=== PATIENT | male | born 1970 | race Caucasian/White ===

== ENCOUNTER → 2020-03-15 14:32 | Outpatient (CLI) | payer BC, SELFPAY ==
--- NOTE | 2020-03-15 14:39 | US_ITS ---
PROCEDURE: US KIDNEY CLINICAL INDICATION: LT GROIN PAIN COMPARISON: No exams were available for comparison FINDINGS: The right kidney is [id number]. No hydronephrosis, cortical thinning, or renal mass or perinephric fluid collection is evident. The left kidney is [id number]. No hydronephrosis, cortical thinning, or renal mass or perinephric fluid collection is evident. IMPRESSION: Unremarkable bilateral renal ultrasound Dictated by: sIael Hector MD 03/15/2020 18:00 Electronically signed by Isael Hector MD in [place] 03/15/2020 18:00
--- NOTE | 2020-03-15 14:39 | US_ITS ---
PROCEDURE: US URINARY BLADDER CLINICAL INDICATION: LT GROIN PAIN COMPARISON: No exams were available for comparison FINDINGS: Urinary bladder has an unremarkable appearance. Full bladder volume is estimated be 4 1 mL. No obvious mass evident. Bilateral ureteral jets noted. Postvoid urine is 80 mL. IMPRESSION: Mild amount of postvoid residual urine otherwise negative urinary bladder ultrasound Dictated by: Isael Hector MD 03/15/2020 18:00 Electronically signed by Isael Hector MD in [place] 03/15/2020 18:00
--- NOTE | 2020-03-15 14:39 | US_ITS ---
PROCEDURE: US TESTICULAR CLINICAL INDICATION: LT GROIN PAIN COMPARISON: No exams were available for comparison FINDINGS: The right testicle is 4 x 2 x 2.6 cm. Left testicle is 4 x 2 x 2.6 cm. There is homogeneous echogenicity of testicles. No mass is evident. Bilateral blood flow is noted. No hydrocele, spermatocele, or varicocele noted. IMPRESSION: Unremarkable testicular ultrasound Dictated by: Isael Hector MD 03/15/2020 17:58 Electronically signed by Isael Hector MD in [place] 03/15/2020 17:58
== END ==
PROVIDERS: Visit Provider Internal Medicine
DX: R10.32 Left lower quadrant pain (principal)
CPT/HCPCS: 76770; 76857; 76870

== ENCOUNTER → 2021-05-22 17:07 | Outpatient (CLI) | payer BC, SELFPAY ==
[2021-05-22 17:44] LABS: Basophils % 0.5 % (0.1-2.0); Eosinophils # 0.2 K/mm3 (0.0-0.4); Eosinophils % 3.2 % (0.1-12.0); Hematocrit 46.6 % (42.0-52.0); Hemoglobin 15.7 g/dL (14.1-18.0); Lymphocytes % 34.2 % (10-50); Mean Corpuscular HGB Conc 33.6 g/dL (31.8-35.4); Mean Corpuscular Hemoglobin 30.6 pg (27.0-31.2); Mean Platelet Volume 8.3 fl (7.4-10.4); Monocytes # 0.4 K/mm3 (0.1-1.0); Monocytes % 6.4 % (1.7-9.3); Neutrophils # 3.3 K/mm3 (1.8-7.8); Neutrophils % 55.7 % (37.0-80.0); Platelet Count 238 K/mm3 (142-424); Red Blood Count 5.12 M/mm3 (4.60-6.20); Red Cell Distribution Width 12.9 % (11.5-17.5); White Blood Count 5.9 K/mm3 (4.8-10.8)
[2021-05-22 18:08] LABS: Hemoglobin A1C 8.4 % (4.0-6.0)
[2021-05-22 18:16] LABS: Chloride 104 mmol/L (98-107); Potassium 4.1 mmoL/L (3.5-5.1); Sodium 140 mmol/L (136-145)
[2021-05-22 18:18] LABS: Alanine Aminotransferase 39 U/L (12-78); Albumin Level 4.6 g/dl (3.5-5.0); Albumin/Globulin Ratio 1.5 (1.1-1.8); Alkaline Phosphatase 115 U/L (38-126); Anion Gap 13.1 mEq/L (5-15); Aspartate Amino Transferase 31 U/L (17-59); Bilirubin,Total 0.5 mg/dl (0.2-1.3); Blood Urea Nitrogen 19 mg/dl (9-20); Carbon Dioxide 27 mmol/L (22.0-30.0); Estimated Glomerular Filt Rate 102 ml/min (>60); GFR (African American) 123 ML/MIN (>60); Total Protein,Serum 7.6 g/dl (6.3-8.2)
[2021-05-22 18:19] LABS: Calcium 9.9 mg/dl (8.4-10.2); Chol/HDL Ratio 3.3 (1-3.5); Cholesterol 240 mg/dl (140-200); Glucose 207 mg/dl (74-100); HDL Cholesterol 73 mg/dl (40-60); Triglycerides 156 mg/dl (30-150); VLDL Cholesterol 31 mg/dL (0-40)
[2021-05-22 18:30] LABS: Direct LDL Cholesterol 140.87 mg/dL (100-129)
[2021-05-22 19:14] LABS: Prostate Specific Ag Screen 0.8 ng/ml (0.0-4.0)
== END ==
PROVIDERS: Visit Provider Internal Medicine
DX: I10 Essential (primary) hypertension (principal); E78.5 Hyperlipidemia, unspecified; E11.9 Type 2 diabetes mellitus without complications; N52.9 Male erectile dysfunction, unspecified; N40.1 Benign prostatic hyperplasia with lower urinary tract symptoms; Z12.5 Encounter for screening for malignant neoplasm of prostate
CPT/HCPCS: 80053; 80061; 83036; 85025; G0103

== ENCOUNTER → 2021-11-22 12:44 | Outpatient (CLI) | payer BC, SELFPAY | PROVIDERS: PCP Internal Medicine; Visit Provider Nurse Practitioner Family | DX: U07.1 COVID-19 (principal) | CPT/HCPCS: C9803; U0003; U0005 ==

== ENCOUNTER 2021-11-25 10:13 | Outpatient (CLI) | payer BC, SELFPAY ==
[2021-11-25] VITALS (8 sets, daily range): BP systolic 144–165; BP diastolic 102–107; PULSE 77–83; RESP 16–18; TEMP 36.4–36.6; O2SAT 94–97
== END 2021-11-25 13:01 | disposition home or self-care (01) ==
LOC: COVID.OUT 10:13
PROVIDERS: Visit Provider Nurse Practitioner Family
DX: U07.1 COVID-19 (principal); Z23 Encounter for immunization
CPT/HCPCS: 96365

== ENCOUNTER → 2022-09-30 17:00 | Outpatient (CLI) | payer BC, SELFPAY ==
[2022-09-30 18:17] LABS: Basophils # 0.1 K/mm3 (0-0.2); Basophils % 1.4 % (0.1-2.0); Eosinophils # 0.1 K/mm3 (0.0-0.4); Eosinophils % 1.6 % (0.1-12.0); Hematocrit 47.3 % (42.0-52.0); Hemoglobin 15.4 g/dL (14.1-18.0); Lymphocytes # 2.3 K/mm3 (0.7-4.5); Lymphocytes % 39.7 % (10-50); Mean Corpuscular HGB Conc 32.5 g/dL (31.8-35.4); Mean Corpuscular Hemoglobin 30.4 pg (27.0-31.2); Mean Corpuscular Volume 93.5 fl (80-94); Mean Platelet Volume 9.4 fl (7.4-10.4); Monocytes # 0.4 K/mm3 (0.1-1.0); Monocytes % 6.5 % (1.7-9.3); Neutrophils % 50.8 % (37.0-80.0); Platelet Count 304 K/mm3 (142-424); Red Blood Count 5.06 M/mm3 (4.60-6.20); Red Cell Distribution Width 13.1 % (11.5-17.5); White Blood Count 5.8 K/mm3 (4.8-10.8)
[2022-09-30 20:11] LABS: Alanine Aminotransferase 47 U/L (12-78); Albumin Level 4.5 g/dl (3.5-5.0); Albumin/Globulin Ratio 1.7 (1.1-1.8); Alkaline Phosphatase 212 U/L (38-126); Anion Gap 16.8 mEq/L (5-15); Aspartate Amino Transferase 32 U/L (17-59); Bilirubin,Total 0.4 mg/dl (0.2-1.3); Blood Urea Nitrogen 18 mg/dl (9-20); Calcium 10.3 mg/dl (8.4-10.2); Carbon Dioxide 29 mmol/L (22.0-30.0); Chloride 95 mmol/L (98-107); Cholesterol 232 mg/dl (140-200); Estimated Glomerular Filt Rate 118 ml/min (>60); GFR (African American) 143 ML/MIN (>60); Globulin 2.6 g/dL (1.3-3.2); Glucose 313 mg/dl (74-100); HDL Cholesterol 58 mg/dl (40-60); Potassium 3.8 mmoL/L (3.5-5.1); Sodium 137 mmol/L (136-145); Total Protein,Serum 7.1 g/dl (6.3-8.2); Triglycerides 157 mg/dl (30-150); VLDL Cholesterol 31 mg/dL (0-40)
[2022-09-30 20:31] LABS: Direct LDL Cholesterol 136.77 mg/dL (100-129)
[2022-09-30 20:43] LABS: Prostate Specific Ag Screen 0.9 ng/ml (0.0-4.0)
[2022-09-30 21:19] LABS: Creatinine,Urine Random 62 mg/dL (Not Estab.)
== END ==
PROVIDERS: PCP Internal Medicine; Visit Provider Internal Medicine
DX: E11.9 Type 2 diabetes mellitus without complications (principal); I10 Essential (primary) hypertension; E78.5 Hyperlipidemia, unspecified; Z12.5 Encounter for screening for malignant neoplasm of prostate
CPT/HCPCS: 80053; 80061; 82043; 82570; 83036; 85025; G0103

== ENCOUNTER → 2023-09-07 16:10 | Outpatient (CLI) | payer BC, SELFPAY ==
--- NOTE | 2023-09-07 16:18 | XR_ITS ---
FINAL REPORT CLINICAL HISTORY: INJURY to right 4th digit x 3 weeks ago. COMPARISON: None FINDINGS: RIGHT HAND: 3 views of the right hand were obtained. There is no acute fracture or dislocation. Visualized joint spaces are normally aligned. Soft tissues are unremarkable. IMPRESSION: No acute bony abnormality. Reviewed, Interpreted and Dictated by Wei Webb III, MD Transcribed by Solange Sanford Authenticated and [facility]
== END ==
LOC: RAD 16:12
PROVIDERS: PCP Internal Medicine; Visit Provider Internal Medicine
DX: M79.641 Pain in right hand (principal); M79.89 Other specified soft tissue disorders
CPT/HCPCS: 73130

== ENCOUNTER 2025-04-20 09:27 | Outpatient (CLI) | payer BC, SELFPAY ==
[2025-04-20 19:18] LABS: Basophils % 0.8 % (0.1-2.0); Eosinophils # 0.2 Kmm3 (0.0-0.4); Eosinophils % 3.3 % (0.1-12.0); Hematocrit 46.6 % (42.0-52.0); Hemoglobin 15.2 g/dL (14.1-18.0); Immature Granulocytes # 0.02 10^3uL; Immature Granulocytes % 0.4 %; Lymphocytes # 2.2 K/mm3 (0.7-4.5); Lymphocytes % 42.3 % (10-50); Mean Corpuscular HGB Conc 32.6 g/dL (31.8-35.4); Mean Corpuscular Hemoglobin 29.4 pg (27.0-31.2); Mean Corpuscular Volume 90.1 fl (80-94); Mean Platelet Volume 11.2 fl (7.4-10.4); Monocytes # 0.5 K/mm3 (0.1-1.0); Monocytes % 9.8 % (1.7-9.3); Neutrophils # 2.2 K/mm3 (1.8-7.8); Neutrophils % 43.4 % (37.0-80.0); Nucleated Red Blood Cells # 0 10^3/uL; Nucleated Red Blood Cells % 0 %; Platelet Count 220 K/mm3 (142-424); Red Blood Count 5.17 M/mm3 (4.60-6.20); Red Cell Distribution Width 12.1 % (11.5-17.5); Red Cell Distribution Width-SD 39.8 fL; White Blood Count 5.1 K/mm3 (4.8-10.8)
[2025-04-20 19:33] LABS: Chloride 103 mmol/L (98-107); Sodium 140 mmol/L (136-145)
[2025-04-20 19:35] LABS: Alanine Aminotransferase 54 U/L (12-78); Aspartate Amino Transferase 42 U/L (17-59); Blood Urea Nitrogen 25 mg/dl (9-20); Estimated Glomerular Filt Rate 100 ml/min (>60); GFR (African American) 121 ML/MIN (>60)
[2025-04-20 19:36] LABS: Alkaline Phosphatase 111 U/L (38-126); Bilirubin,Total 0.6 mg/dl (0.2-1.3); Calcium 9.8 mg/dl (8.4-10.2); Carbon Dioxide 26 mmol/L (22.0-30.0); Chol/HDL Ratio 2.8 (1-3.5); Cholesterol 189 mg/dl (140-200); Glucose 167 mg/dl (74-100); HDL Cholesterol 67 mg/dl (40-60); Total Protein,Serum 7.6 g/dl (6.3-8.2); Triglycerides 123 mg/dl (30-150); VLDL Cholesterol 25 mg/dL (0-40)
[2025-04-20 19:47] LABS: Direct LDL Cholesterol 89.57 mg/dL (100-129)
[2025-04-20 20:20] LABS: Microalbumin/Creatinine Ratio 31.6
[2025-04-20 20:29] LABS: Creatinine,Urine Random 66 mg/dL (Not Estab.)
[2025-04-20 20:48] LABS: Hemoglobin A1C 11.8 % (4.0-6.0)
[2025-04-20 22:47] LABS: Prostate Specific Ag Screen 0.9 ng/ml (0.0-4.0)
[2025-04-20 22:51] LABS: Albumin Level 4.8 g/dl (3.5-5.0); Albumin/Globulin Ratio 1.7 (1.1-1.8); Globulin 2.8 g/dL (1.3-3.2)
--- OUTSIDE RECORDS SUMMARY | 2025-04-21 13:28 | XMS_ITS | Data Portability ---
Author Organization ALFREDO JOSE DAVID Alvarez [facility] CLOSED Address [address] [facility] [address] [place] [address] Care Team Providers Care Outside Laborer Name Role Phone KENIA MENDEZ Primary Care Provider KENIA TILLMAN Staff Training And Development Manager SIMON KING Instructional Systems Design Consultant [phone] Assessment Encounter Date Assessment Date Assessment LastModified by Organization Details LastModified Time 04/19/2019 04/19/2019 Discussed with patient that he does not have findings suggestive of a tennis elbow at this time, but instead more consistent with radial tunnel syndrome. Recommended referral to hand therapy as well as a diagnostic/therap eutic corticosteroid injection, which was divided in the office today. I instructed patient to monitor for difficulty with thumb extension, which will help confirm that the injection was placed in the radial tunnel. He'll continue modified work duty. Follow-up in 5 weeks for repeat assessment. bdevers Not available 04/19/2019 14:36:28 05/24/2019 05/24/2019 Discussed with patient that his history and exam remains most consistent with radial tunnel syndrome. Recommended continued therapy at this time. His injection at last clinic visit did resort in some improvement, but not a temporary PIN palsy. Thus, it is possible that the injection was not placed around the nerve. Thus recommended repeat injection in the office today.. I instructed patient to monitor for difficulty with thumb extension, which will help confirm that the injection was placed in the radial tunnel. He'll continue modified work duty. Follow-up in 5 weeks for repeat assessment. bdevers Not available 05/24/2019 16:50:49 06/28/2019 06/28/2019 Patient is doing well at this time with significant improvement in symptoms. Okay to return to work without restrictions at this time to start the work reentry process. Follow-up in 5 weeks for repeat assessment to ensure no setbacks upon return to work. If continuing to do well at that time I plan to declare him MMI. bdevers Not available 06/28/2019 16:06:41 08/02/2019 08/02/2019 Patient is doing well at this time with resolution of symptoms. Okay to continue working without restrictions at this time. He has now reached MMI. Patient will follow up in clinic on an as-needed basis should additional questions or concerns arise. bdevers Not available 08/02/2019 14:02:10 Plan of Treatment Reminders Order Date Submit Date Provider Last Modified By Organization Details Last Modified Time Details Appointments None recorded. Lab glycohemog lobin, total, blood 2017 018 [facility], [address] [place] [address], [id number], 8 19:28:06 Referral None recorded. Procedures None recorded. Surgeries None recorded. Imaging None recorded. Medication Orders amlodipine 2.5 mg tablet 2017 018 [facility], [address], [place], [address], 9 14:09:11 lisinopril 20 mg-hydroch lorothiazi de 12.5 mg tablet 2017 018 INTERFACE [facility], [address], [place], [address], 8 15:43:12 pravastati n 10 mg tablet 2017 018 [facility] - [facility], [address], [place], [address], 9 14:08:55 Patient TargetsNo targets recorded. Patient Instructions Encounter Date Encounter Id Patient Instructions Last Modified By Organization Details Last Modified Time 12/21/2017 [id number] type 2 diabetes: care instructions Not available 12/21/2017 15:43:03 high cholesterol : care instructions Not available 12/21/2017 15:43:03 learning about healthy weight Not available 12/21/2017 15:43:03 Body Mass Index: Care Instructions-LC Not available 12/21/2017 15:43:03 04/19/2019 [id number] eating healthy foods: care instructions [email or web address] [id number] Not available 05/29/2022 03:37:07 type 2 diabetes: care instructions [email or web address] [id number] Not available 05/29/2022 03:36:43 Reason for Referral None Reported. Results Created Date Observation Date Name Description Value Unit Range Abnormal Flag Note LastModifiedBy Organization Detail LastModifiedTime 12/21/19 18 12/21/2017 glyco hemog lobin , total , blood glyco HGB A1C 7.3 % 0.0-5. 6 high Not Available [facility] [address] [place], [address], 12/21/2017 19:28:06 12/21/19 18 12/21/2017 glyco hemog lobin , total , blood estimated avg. glucose 163 mg/dL _(laura c) normal New guide lines by the Ameri can Diabe yeni Assoc iatio n state that a hemog lobin A1c level of 5.7-6 .4% indic ates an incre ased risk of diabe yeni. A resul t of 6.5% or highe r is diagn ostic of diabe yeni. Not Available [facility] [address] [place], [address], 12/21/2017 19:28:06 Result Notes None recorded. Problems Name Problem SNOMED Code Status Onset Date Resolution Date Notes Provider Name and Address Organization Details Recorded Time Hypertens kee disorder 76084354 Active 2015 From Automated Load;Provi federico: Samantha Mendez atus: Active Not Available [facility] 6 09:22:27 Hyperlipi demia 95861997 Active 2015 From Automated Load;Provi federico: Kenia Mendez;St atus: Active Not Available [facility] 6 09:22:27 Type 2 diabetes mellitus 97972237 Active 2015 From Automated Load;Provi federico: Kenia Mendez;St atus: Active Not Available [facility] 6 09:22:27 Dizziness and giddiness 184369614 Active 2015 From Automated Load;Provi federico: Karina Bhandari;Stat us: Active Not Available [facility] 7 06:34:19 Type 2 diabetes mellitus without complicat ion 331302473 Active 2015 From Automated Load;Provi federico: Kenia Tillman;St atus: Active Not Available [facility] 7 06:34:19 Problem Notes Documentation Provider Name and Address Organization Details Recorded Time Orthopedic Consult Note : [facility] [address] [facility] [address]GEMR, LUIS E (id #[id number], : 1970) [facility] [address] [place] [address] Encounter Summary - Progress Note Date Printed: 04/19/2019 Documents sent via fax will include the followingmessage: This fax may contain sensitive and confidential personal health information that is being sent for the sole use of the intended recipient. Unintended recipients are directed to securely destroy any materials received. You are hereby notified that the unauthorized disclosure or other unlawful use of this fax or any personal health information is prohibited. To the extent patient information contained in this fax is subject to 42 CFR Part 2, this regulation prohibits unauthorized disclosure of these records. If you received this fax in error, please visit [email or web address] to notify the sender and confirm that the information will be destroyed. If you do not have internet access, please call to notify the sender and confirm that the information will be destroyed. Thank you for your attention and cooperation. [ID:[id number]] Patient Alex Sutton (48yo, M) #[id number] 1970 Patient Demographics: Address [address] [place] [address] [place] [address] Encounter Notes: Encounter Reason/Date NEW: right forearm w/comp 04/19/2019 - 02:30PM - [facility] History of Present IllnessHand SurgeryReported bypatient.Hand Dominance:right Location:right Severity:pain level 7/10 Duration:date of injury: ; 12 weeks Previous Surgery:none Work Related:yes Working:modified duty; [employer] 2Notes:NEW: right forearm pain w/comp, has been doing therapy on site for the past month has seen some relief. Con Req BY: Dr. 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 He presents as a compensation consultation today for evaluation of a 4 month history of right dorsal proximal forearm pain. Denies any preceding injury, that relates it to his work-related activity. He has been working with therapy at work for the past month and has been on restrictions for over a month as well. He has been using Biofreeze intermittently. He tries to avoid anti-inflammatory medication and has not tried any splinting. Overall symptoms remain unchanged at this time. Symptoms are worse with the elbow extended and with strenuous activity. Denies any numbness or tingling in the hand. Review of Systems Patient reportsGERDbut reports no abdominal pain, no vomiting, normal appetite, no diarrhea, not vomiting blood, and no dyspepsia. He reports no fever and no night sweats. He reports no chest pain, no palpitations, and no known heart murmur. He reports no excessive bleeding. He reports no runny nose, no sinus pressure, no itching, no hives, and no frequent sneezing. He reports no history of Accutane (isotretinoin) use in the last 6 months. He reports not currently smoking. Maprwf1204/19/2019 02:07 pm Ht: 5 ft 4 in Wt: 186 lbs BMI: 31.9 Pain Scale: 7 Results/InterpretationsNone recorded Physical ExamPatient is a 48-year-old male. General: No acute distress Mental Status: Appropriate HEENT: NCAT Pulmonary: Chest excursion symmetric with unlabored breathing Cardiovascular: Palpable radial pulse GI: No asymmetric abdominal distension Skin: No visible lesions or rashes upon examined upper extremity(s) except as noted in musculoskeletal exam Lymphatic: No lymphadenopathy within examined upper extremity(s) Musculoskeletal: Focused examination of right upper extremity reveals no swelling in the arm. No tenderness over the lateral epicondyle or common extensor tendon. No pain with resisted wrist extension or resisted finger extension. He does have tenderness over the dorsal central proximal forearm in the area of the radial tunnel and reports mild pain with resisted supination. Sensation grossly intact to light touch throughout the hand. Hand and digits well-perfused. Procedure DocumentationInjection Tendon Sheath/Ligament:Injection(s), Tendon Sheath or Ligament: Right radial tunnel After discussion of the risks and benefits, the patient elected a corticosteroid injection in the involved tendon sheath. The skin was sterilized with alcohol. Topical anesthesia was achieved with ethyl chloride. The involved tendon sheath was injected with 1 cc of Betamethasone [facility] 1828-6472-10, 6 mg/ml, and Marcaine. The injection was completed without complication and a bandage was applied. The patient tolerated the procedure well and was instructed to avoid strenuous activity for the next 24-48 hours. The patient will call immediately with any signs of infection or allergic reaction. Assessment and PlanDiscussed with patient that he does not have findings suggestive of a tennis elbow at this time, but instead more consistent with radial tunnel syndrome. Recommended referral to hand therapy as well as a diagnostic/therapeutic corticosteroid injection, which was divided in the office today. I instructed patient to monitor for difficulty with thumb extension, which will help confirm that the injection was placed in the radial tunnel. He'll continue modified work duty. Follow-up in 5 weeks for repeat assessment. 1. Radial tunnel syndrome- Right radial tunnel syndrome (CSI: 04/19/19) G56.31: Lesion of radial nerve, right upper limb 2. Type 2 diabetes mellitus without complication- Instructed patient to monitor his blood glucose levels for the next 3-5 days as these will be temporarily elevated following injection in the office today. E11.9: Type 2 diabetes mellitus without complications EATING HEALTHY FOODS: CARE INSTRUCTIONS TYPE 2 DIABETES: CARE INSTRUCTIONS Return to Office KRISTEN STANFORD MD for RECHECK at [facility] on 05/24/2019 at 02:30 PM Patient Medical History: Allergies List Reviewed Allergies NKDA Medications Reviewed Medications NameDate Source Accu-Chetania Guide stripscheck blood sugar at and Dx: E11.91 prescribed KARINA BHANDARI PA-C Amaryl 4 mg tabletTake 1 tablet(s) every day by oral route.12/21/17 prescribed KARINA BHANDARI PA-C glimepiride 2 mg tabletTake 1 tablet(s) every day by oral route.04/19/19 entered Mariola Carver Glucophage 1,000 mg tabletone po bid with meals Internal Note:Duration: 30 days;Frequency: bid;Medication Description: metformin; Dosage:1; Route:oral; refills:6; Quantity:60 /24/17 prescribed KENIA MENDEZ MD lisinopril 20 mg-hydrochlorothiazide 12.5 mg tabletTAKE ONE TABLET BY MOUTH ONCE DAILY12/21/17 prescribed KARINA BHANDARI PA-C Family HistoryReviewed Family History Father - Hypertensive disorder - Diabetes mellitus Past Medical HistoryReviewed Past Medical History Diabetes:Y High Cholesterol:Y Hypertension:Y Vaccine HistoryReviewed Vaccines no vaccines listed in IC Electronically Signed by: KRISTEN STANFORD MD KENIA MENDEZ MD [address] [place] [address] [place], [address], [facility] 04/19/2019 14:48:21 Procedures Surgical History Date Name Laterality Status Provider Name and Address Organization Details Recorded Time 9 Injection Tendon Sheath/Ligamen t completed [facility] [place], [address], [facility] 05/24/2019 16:51:10 9 Injection Tendon Sheath/Ligamen t completed KRISTEN STANFORD [facility] [place], [address], [facility] 04/19/2019 14:34:25 Knee Surgery completed Jessica Waller [facility] 11/10/2016 14:46:16 Imaging Results None recorded. Procedure Notes None recorded. Medical Equipment None Reported. Allergies No known drug allergies Medications Name Sig Start Date Stop Date Status Note LastModified by Organization Details LastModified Time lisinopril 20 mg-hydrochl orothiazide 12.5 mg tablet TAKE ONE TABLET BY MOUTH ONCE DAILY 2017 active Not Available Not Available Not Avai lable amlodipine 2.5 mg tablet TAKE ONE TABLET BY MOUTH ONCE DAILY 04/19 completed Not Available Not Available Not Available Glucophage 1,000 mg tablet one po bid with meals 2016 active Duratio n: 30 days;Fr equency : bid;Med ication Descrip tion: metform in; Dosage: 1; Route:o ral; refills :6; Quantit y:60 tablet Not Available Not Available Not Available glimepiride 2 mg tablet Take 1 tablet every day by oral route. active Not Available Not Available No t Available Amaryl 4 mg tablet Take 1 tablet every day by oral route. 2017 active Not Available Not Available Not Avai lable pravastatin 10 mg tablet TAKE ONE TABLET BY MOUTH ONCE DAILY 04/19 completed Not Available Not Available Not Available Accu-Chek Guide test strips check blood sugar at ac and hs Dx: E11.9 2016 active Not Available Not Available Not Avai lable Vitals Date Recorded Body height Body mass index (BMI) Body weight Heart rate Systolic blood pressure Diastolic blood pressure Provider Name and Address Organization Details Last Updated DateTime 8 160.02 cm 32.9 kg/m2 75051.1 8 g 76 /min 130 mm[Hg] 80 mm[Hg] America Hagen [facility] 8 15:31:32 Date Recorded Body height Body mass index (BMI) Body weight Provider Name and Address Organization Details Last Updated DateTime 04/19/2019 162.56 cm 31.9 kg/m2 10768.18 g Mariola Wen [facility] 04/19/2019 14:07:43 Date Recorded Body height Body mass index (BMI) Body weight Provider Name and Address Organization Details Last Updated DateTime 05/24/2019 162.56 cm 31.9 kg/m2 20412.18 g Jessica Joe [facility] 05/24/2019 14:35:59 Date Recorded Body height Body mass index (BMI) Body weight Provider Name and Address Organization Details Last Updated DateTime 06/28/2019 162.56 cm 31.9 kg/m2 43740.18 g Magali Cheema [facility] 06/28/2019 14:38:21 Date Recorded Body height Body mass index (BMI) Body weight Provider Name and Address Organization Details Last Updated DateTime 08/02/2019 162.56 cm 31.9 kg/m2 99154.18 g Mariola Carver [facility] 08/02/2019 13:39:44 Social History Question Answer Notes LastModified by Organizat ion Details LastModified Time Tobacco Smoking Status Former Smoker Jessica Waller [facility] 11/10/2016 14:45:46 What Is Your Level Of Caffeine Consumption? Moderate Information not available 11/10/2016 Which Of Your Hands Is Dominant? Right Information not available 04/19/2019 What Was The Date Of Your Most Recent Tobacco Screening? 05/24/2019 [id number] Information not available 01/10/2020 Sex: Unknown Functional Status Question Answer Note LastModified by Organizat ion Details LastModified Time Do you use any illicit or recreational drugs? No Information not available 04/19/2019 What is your level of alcohol consumption? Occasional Information not available 11/10/2016 What is your occupation? [employer] Information not available 04/19/2019 Mental Status None recorded. Family History Relationship Description Onset Age of this Age Resolved Age Notes LastModified by Organization Details LastModified Time Father Hypertensive disorder [email or web address] Not available 2015 14:44:10 Father Diabetes mellitus [email or web address] Not available 2015 14:45:09 Medical History Condition Response Diabetes Y High Cholesterol Y Hypertension Y Past Encounters Encounter ID Performer Location Encounter Start Date Encounter Closed Date Diagnosis/Indication Diagnosis SNOMED-CT Code Diagnosis ICD10 Code Diagnosis Note [id number] LOYDA MURDOCK PA-C [facility] [address] [place] [address] 11/13/2016 08:24:33 11/13/2016 15:08:47 Hypertensive disorder 20951592 I10 in good control Essential hypertension 87403732 I10 Diabetes mellitus 890319 09 E11.9 elevated A1C at last visit and pt is NOT taking his Metformin ecept weekends. He does not check his BG at home. 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 got two of three planned injections . bleeding still apparent. rec reeval with [facility] for further evaluation .It looks much better than initally described by Dr. Colindres' note. [id number] ALLYN MCKAYC [address] [place] [address] 09/07/2017 14:02:12 09/07/2017 14:51:38 Type 2 diabetes mellitus without complication 744946226 E11.9 glucose 275 after lunch one day last week. apparently pt had prednisone x 2 days prior to having the blood draw per his dray driver for plantar fasciitis but has since stopped this. I suspect this is what elevated his sugar. He would like a glucose meter to check his blood sugar at home. glucose meter was provided to the patient, and strips and lancets were ordered. Hypertensive disorder 38 461712 I10 stable on meds. didn't get labs done in march. Hyperlipidemia 35574637 E78.5 on pravastati n. didn't get lipid panel done in march. Screening for malignant neoplasm of prostate 507218030 Z12.5 Numbness of toe 01549885 8 R20.0 this is mild and intermitte nt. May be from diabetes, b12 deficiency , or a peripheral nerve issue. check labs. exam normal today. [id number] KARINA BHANDARI PA-C [address] [place] [address] 10/16/2017 10:17:37 10/16/2017 11:26:51 Hypertensive disorder 71908548 I10 stable. labs done in august. does not yet need refills. Type 2 ruth betes mellitus without complication 539131643 E11.9 amaryl added last month when HbA1c was 8.8. recheck A1c in 2 months. low carb diet. does not yet need refills. Hyperlipidemia 27353627 E78.5 on pravastati n. does not need refills. [id number] KARINA BHANDARI PA-C [address] [place] [address] 12/21/2017 15:22:28 12/21/2017 16:24:00 Type 2 diabetes mellitus without complication 931396083 E11.9 amaryl added to glucophage when HbA1c was 8.8 in august. recheck A1c. low carb diet. Body mass index 30+ - obesity 817827207 Z68.39 work on lower calorie diet and increase exercise to lose weight. Hypertensive disorder 38 758260 I10 stable. CMP done in august. Hyperlipidemia 21424193 E78.5 on pravastati n. labs utd. [id number] KRISTEN STANFORD MD [facility] [address] [place] [address] 04/19/2019 13:47:51 04/21/2019 08:00:50 Type 2 diabetes mellitus without complication 512798458 E11.9 Instructed patient to monitor his blood glucose levels for the next 3-5 days as these will be temporaril y elevated following injection in the office today. Radial claudine smith syndrome 788595957 G56.31 Right radial tunnel syndrome (CSI: 04/19/19) [id number] KRISTEN STANFORD MD [facility] [address] [place] [address] 05/24/2019 14:15:03 05/25/2019 09:29:55 Radial tunnel syndrome 228835149 G56.31 Right radial tunnel syndrome (CSI: 05/24/19; 04/19/19) [id number] KRISTEN STANFORD MD [facility] [address] [place] [address] 06/28/2019 14:05:08 06/28/2019 15:14:00 Radial tunnel syndrome 788185427 G56.31 Right radial tunnel syndrome (CSI: 05/24/19; 04/19/19) [id number] KRISTEN STANFORD MD [facility] [address] [place] [address] 08/02/2019 13:27:18 08/03/2019 10:38:33 Radial tunnel syndrome 379251785 G56.31 Right radial tunnel syndrome (CSI: 05/24/19; 04/19/19) Health Concerns Section Related Observation LastModified by Organization Detai ls LastModified Time None Recorded Concern Status LastModified by Organization Details LastModified Time None Recorded Advance Directives Directive None Recorded Payers Insurance Date Sequence Insurance Name Policy Number Policy Alegria Covered Member ID Alegria Member ID Guarantor Name 07/30/2019 1 [place] [id number] Alex Sutton [id number] Alex Sutton 04/15/2019 [facility] Ashlee Sutton Notes Date Note Type Note Provider Name and Address Organization Details Recorded Time 12/21/2017 text/html patient presents for follow-up of type 2 diabetes after Amaryl was added in August when his hemoglobin A1c was 8.8 on Glucophage. He is tolerating the medications well and denies blurred vision, polyuria, or polydipsia. He is due to have his hemoglobin A1c repeated. He is trying to follow a low carbohydrate diet but is not checking his blood sugar. He does periodically check his blood pressure and states that it runs in a normal range, though he does not report numbers. He denies chest pain or shortness of breath. He tolerates pravastatin well and denies myalgias on the medication. He is working on diet and exercise and goes to the gym several days a week. He has been in his usual state of health. He declines flu shot. KARINA BHANDARI PA-C [address] [place] [address], [address], [facility] 12/21/2017 15:50:41 04/19/2019 text/html Hand SurgeryRepo rted bypatient.Hand Dominance:right Location:right Severity:pain level 7/10 Duration:date of injury: ; 12 weeks Previous Surgery:none Work Related:yes Working:modified duty; [employer] 2Notes:NEW: right forearm pain w/comp, has been doing therapy on site for the past month has seen some relief. Con Req BY: Dr. 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 He presents as a compensation consultation today for evaluation of a 4 month history of right dorsal proximal forearm pain. Denies any preceding injury, that relates it to his work-related activity. He has been working with therapy at work for the past month and has been on restrictions for over a month as well. He has been using Biofreeze intermittently. He tries to avoid anti-inflammatory medication and has not tried any splinting. Overall symptoms remain unchanged at this time. Symptoms are worse with the elbow extended and with strenuous activity. Denies any numbness or tingling in the hand. KRISTEN STANFORD MD [address] [place] [address], [phone], [facility] 04/19/2019 14:36:41 05/24/2019 text/html Hand SurgeryRepo rted bypatient.Hand Dominance:right Location:right; forearm/elbow Severity:pain level 3/10; With activity/at its worst, pain is a 5. Duration:date of injury: 01-26-2019; 4 months Previous Surgery:none Work Related:yes Working:modified duty; [employer] 2Notes:Pt returns for f/u of rt forearm/elbow. States he's still having soreness. Pt also reports his pain at a 3 on average, but can increase to a 5. Patient reports approximately 30% improvement following corticosteroid injection for radial tunnel syndrome at last clinic visit. However he reports no temporary partial impairment and EPL tendon function, thus it is possible that the injection was not placed directly around the PIN. Continues to report focal pain along the right dorsal proximal forearm pain. He continues to work with therapy and believes that this is gradually helping over time. Denies any preceding injury, that relates it to his work-related activity. He continues to be a modified work duty. Denies any numbness or tingling in the hand. KRISTEN STANFORD MD [address] [place], [id number], [facility] 05/24/2019 16:51:17 06/28/2019 text/html Hand SurgeryRepo rted bypatient.Hand Dominance:right Location:right; forearm/elbow Severity:pain level 0/10 Duration:date of injury: 01-26-2019; 22 weeks Previous Surgery:none Work Related:yes Working:modified duty; [employer]Notes:Pt returns for a recheck of the right forearm and states that he is currently not having any pain and states no concerns at this time. Patient reports that injection at last clinic visit helped significantly in conjunction with being off work during shut down and vacation as he is now 80-85% improved. Still with some mild soreness along the right dorsal proximal forearm, but not nearly as tender and no pain with use. While he reports significant improvement with the injection, he again reports no temporary partial impairment of EPL tendon function. He continues to be a modified work duty. Denies any numbness or tingling in the hand. KRISTEN STANFORD MD [address] [place], [id number], [facility] 06/28/2019 16:06:50 08/02/2019 text/html Hand SurgeryRepo rted bypatient.Hand Dominance:right Location:right; forearm/elbow Severity:pain level 0/10 Duration:date of injury: 01-26-2019; weeks; 6 months Previous Surgery:none Work Related:yes Working:regular duty; [employer] 2Notes:patient states he is doing well Patient reports he is doing well at this time with no significant pain. Reports only occasional soreness in the dorsal proximal forearm with prolonged use. He has been back to work without restrictions and reports no setbacks in this regard. KRISTEN STANFORD MD [address] [place], [phone], [facility] 08/02/2019 14:02:26
== END 2025-04-20 23:59 | disposition home or self-care (01) ==
LOC: LAB.DROPOF 04-21 13:26
PROVIDERS: PCP Internal Medicine; Visit Provider Internal Medicine
DX: E78.5 Hyperlipidemia, unspecified (principal); I10 Essential (primary) hypertension; E11.9 Type 2 diabetes mellitus without complications; Z12.5 Encounter for screening for malignant neoplasm of prostate
CPT/HCPCS: 80053; 80061; 82043; 82570; 83036; 85025; G0103